=== PATIENT | female | born 1990 | race Two or more races ===

== ENCOUNTER 2018-07-21 17:38 | Emergency (ER) | payer MEDICAID ==
[~2018-07-21] VITALS: Ht 152.4 cm; Wt 73.5 kg
[2018-07-21 17:38] VITALS: BP 107/71
--- NOTE | 2018-07-21 17:45 | NUR ---
PATIENT PRESENTED TO THE ER DUE VAGINAL BLEEDING, PER PATIENT HER LAST LMP WAS 06/21/18 AND DID NOT STOP SINCE THEN. ALERT AND ORIENTED X 4, BREATHING EVENLY AND UNLABORED. KEPT COMFORTABLE. WILL CONTINUE TO MONITOR ACCORDINGLY.
--- NOTE | 2018-07-21 18:26 | NUR ---
URINE COLLECTED AND SENT TO LAB.
--- NOTE | 2018-07-21 19:20 | NUR ---
REPORT GIVEN TO MARY GRACE ALEMAN FOR CHEMO
[2018-07-21 19:21] LABS: BASOPHILS # (AUTO) 0.1 /CMM (0.0-0.2); BASOPHILS % (AUTO) 0.6 % (0.0-2.0); EOSINOPHILS % (AUTO) 3.5 % (0.0-6.0); HEMATOCRIT 38 % (33-45); HEMOGLOBIN 12.7 g/dL (11.5-14.8); LYMPHOCYTES # (AUTO) 2.9 /CMM (0.8-4.8); LYMPHOCYTES % (AUTO) 31.3 % (20.0-44.0); MEAN CORPUSCULAR HGB CONC 34 g/dl (31.0-36.0); MEAN CORPUSCULAR VOLUME 87 fL (82-100); MONOCYTES # (AUTO) 0.6 /CMM (0.1-1.30); MONOCYTES % (AUTO) 6.5 % (2.0-12.0); NEUTROPHILS # (AUTO) 5.4 /CMM (1.8-8.9); NEUTROPHILS % (AUTO) 58.1 % (43.0-81.0); PLATELET COUNT (AUTO) 332 /CMM (150-450); RED BLOOD CELL COUNT(AUTO) 4.36 MIL/uL (4.0-5.2); WHITE BLOOD COUNT (AUTO) 9.3 K/uL (4.3-11.0)
[2018-07-21 19:27] LABS: CALCIUM, SERUM 8.8 mg/dL (8.5-10.1); CREATININE 0.7 mg/dL (0.6-1.3); POTASSIUM 3.8 mmol/L (3.5-5.1)
[2018-07-21 19:39] LABS: ALBUMIN 3.9 g/dL (3.4-5.0); BILIRUBIN,DIRECT 0.1 mg/dL (0.0-0.2); BILIRUBIN,TOTAL 0.4 mg/dL (0.2-1.0); TOTAL PROTEIN, SERUM 8.1 g/dL (6.4-8.2)
--- NOTE | 2018-07-21 20:23 | NUR ---
Patient discharged to home in stable condition. Written and verbal after care instructions given. Patient verbalizes understanding of instruction.
== END 2018-07-21 20:27 | disposition home or self-care (01) ==
LOC: ER 17:40
DX: N92.0 Excessive and frequent menstruation with regular cycle (principal)
CPT/HCPCS: 36415; 76856-TC; 80048-TC; 80076-TC; 84702-TC; 85025-TC; 85730-TC; 86850-TC; A6402

== ENCOUNTER 2025-03-28 14:08 | Emergency (ER) | payer MEDICAID ==
[~2025-03-28] VITALS: Ht 134.6 cm; Wt 81.6 kg
[2025-03-28] MEDS ORDERED: IBUP-1953 PO (14:58)
[2025-03-28] MEDS ORDERED: TDAP [DIPH/PERTUSSIS/TET] 0.5 ML VIAL IM ONE (15:00)
[2025-03-28] MEDS ORDERED: ACETAMINOPHEN ES 500 MG TABLET ONE (15:00)
[2025-03-28] MEDS ORDERED: KETOROLAC TROMETHAMINE 15 MG/ML VIAL ONE (15:00)
[2025-03-28] MEDS: ACETAMINOPHEN ES 500 MG TABLET PO ONE (15:09)
[2025-03-28] MEDS: KETOROLAC TROMETHAMINE 15 MG/ML VIAL IM ONE (15:10)
[2025-03-28] MEDS: TDAP [DIPH/PERTUSSIS/TET] 0.5 ML VIAL IM ONE (15:11)
[2025-03-28 15:17] VITALS: BP 120/85; TEMP 98.6; O2SAT 99
== END 2025-03-28 15:17 | disposition home or self-care (01) ==
LOC: ER 14:10
DX: S61.411A Laceration without foreign body of right hand, initial encounter (principal); Z48.00 Encounter for change or removal of nonsurgical wound dressing; W26.0XXA Contact with knife, initial encounter; Y93.9 Activity, unspecified; Y92.89 Other specified places as the place of occurrence of the external cause; Y99.8 Other external cause status
CPT/HCPCS: 12002; 90471; 90715; 96372; 99284; A6403; J1885